=== PATIENT | female | born 1995 | race Caucasian/White ===

== ENCOUNTER 2019-03-23 03:00 | Emergency (ER) | payer OTHER ==
[~2019-03-23] VITALS: Ht 160 cm; Wt 57.5 kg
[2019-03-23] MEDS ORDERED: LORazepam 1MG TABLET ONE (03:40)
[2019-03-23] MEDS ORDERED: ONDANSETRON ODT 4 MG ONE (03:40)
--- NOTE | 2019-03-23 03:52 | NUR ---
PT MEDICATED PER JUN. POC DISCUSSED. PT WITH INTERMITTENT TACHYCARDIA RANGING FROM 99-122BPM. PT ANXIOUS BUT FURTHERMORE IS PRIMARLLY WORRIED ABOUT HER PARENTS FINDING OUT WHY SHE IS HERE. PT WAS EXPLAINED PRIVACY LAWS. PT AND FRIEND DENY FURTHER NEEDS AT THIS TIME.
[2019-03-23] MEDS ORDERED: LORazepam 1MG TABLET PO ONE (04:00)
[2019-03-23] MEDS ORDERED: ONDANSETRON ODT 4 MG PO ONE (04:00)
--- NOTE | 2019-03-23 04:34 | NUR ---
PT STATES MUCH RELIEF. PT AND FRIEND DENY FURTHER NEEDS AT THIS TIME. PT UP FOR RECHECK AT THIS TIME.
[2019-03-23 04:41] VITALS: BP 117/74
== END 2019-03-23 04:43 | disposition home or self-care (01) ==
LOC: ED 03:55
DX: R42 Dizziness and giddiness (principal); F15.129 Other stimulant abuse with intoxication, unspecified; R11.10 Vomiting, unspecified
CPT/HCPCS: 93005; 99283; Q0162